=== PATIENT | female | born 1980 | race American Indian/Alaskan Native ===

== ENCOUNTER 2016-06-19 16:03 | Inpatient (IN) | payer MEDICAID, OTHER ==
[2016-06-19] MEDS ORDERED: BRETHINE SUB-Q PRN (16:12)
[2016-06-19] MEDS ORDERED: ePHEDrine SULFATE IV PRN ×2 (16:12→22:19)
[2016-06-19] MEDS ORDERED: STADOL IV PRN (16:12)
[2016-06-19] MEDS ORDERED: NARCAN 0.4 MG/1 ML IV PRN (16:12)
[2016-06-19] MEDS ORDERED: SUBLIMAZE IV PRN (16:12)
[2016-06-19] MEDS ORDERED: MINERAL OIL PO PRN (16:12)
[2016-06-19] MEDS ORDERED: ZOFRAN IV PRN (16:12)
[2016-06-19] MEDS ORDERED: BRETHINE IVP PRN (16:12)
[2016-06-19] MEDS ORDERED: PITOCin/NS 30 UNIT/500ML 500 ML IV SCH (17:00)
[2016-06-19] MEDS ORDERED: PITOCin/NS 20 UNIT/1000ML DRIP 1,000 ML IV SCH (17:00)
[2016-06-19] MEDS ORDERED: POLYCILLIN/NS 2 GM/100 ML 100 ML IV ONE (17:00)
[2016-06-19] MEDS ORDERED: XYLOCAINE 2% INFILTRATI ONE (17:00)
[2016-06-19] MEDS ORDERED: LACTATED RINGERS 1,000 ML IV SCH (17:00)
[2016-06-19] MEDS ORDERED: AMBIEN PO PRN (17:04)
[2016-06-19 18:35] LABS: Hematocrit 29.2 % (30.3-42.9); Mean Corpuscular HGB Conc 31 % (30-34); Mean Corpuscular Volume 79 fl (79-97); Platelet Count 224 K/mm3 (140-440); Red Blood Count 3.72 M/mm3 (3.65-5.03); White Blood Count 12.7 K/mm3 (4.5-11.0)
[2016-06-19 18:39] LABS: Mean Corpuscular Hemoglobin 24 pg (28-32)
[2016-06-19] MEDS ORDERED: BENADRYL ONE (19:24)
[2016-06-19] MEDS ORDERED: BENADRYL IV PRN (19:29)
[2016-06-19] MEDS ORDERED: POLYCILLIN/NS 1 GM/50 ML 50 ML IV SCH (20:16)
[2016-06-19] MEDS ORDERED: ePHEDrine SULFATE ONE (20:59)
[2016-06-19] MEDS ORDERED: NARCAN 2 MG/2 ML IV PRN (22:19)
--- NOTE | 2016-06-19 22:19 | Anesthesia Consultation ---
Anesthesia Consult and Med Hx Date of service: 06/19/16 - Airway Anesthetic Teeth Evaluation: Good ROM Head & Neck: Adequate Mental/Hyoid Distance: Adequate Mallampati Class: Class II Intubation Access Assessment: Probably Good - Pulmonary Exam CTA: Yes - Cardiac Exam Cardiac Exam: RRR - Pre-Operative Health Status ASA Pre-Surgery Classification: ASA2 Proposed Anesthetic Plan: Epidural - Pre-Anesthesia Comment Pre-Anesthesia Comments: at 39 weeks GA in active labor - Pulmonary Hx Asthma: Yes COPD: No Hx Pneumonia: No - Cardiovascular System Hx Hypertension: No Hx Pacemaker: No Hx Internal Defibrillator: No - Central Nervous System Hx Seizures: No CVA: No Hx Psychiatric Problems: No - Endocrine Hx Renal Disease: No Hx End Stage Renal Disease: No Hx Liver Disease: No Hx Hypothyroidism: No Hx Hyperthyroidism: No - Hematic Hx Anemia: No Hx Sickle Cell Disease: No - Other Systems Hx Alcohol Use: No Hx Cancer: No
[2016-06-19] MEDS ORDERED: PEPCID IV ONE (22:44)
[2016-06-19] MEDS ORDERED: BICITRA ONE (22:44)
[2016-06-19] MEDS ORDERED: REGLAN ONE (22:44)
[2016-06-19] MEDS ORDERED: XYLOCAINE MPF 2% ONE (22:58)
[2016-06-19] MEDS ORDERED: ANCEF/STERILE WATER 2 GM/20 ML IV ONE (23:00)
[2016-06-19] MEDS ORDERED: fentaNYL-BUPIV 2 MCG/ML-0.125% 100 ML EPIDURAL SCH (23:00)
[2016-06-19] MEDS ORDERED: NACL 0.9% IR ONE (23:15)
[2016-06-19] MEDS ORDERED: WATER FOR IRRIG STERILE IR ONE (23:15)
[2016-06-19] MEDS ORDERED: VERSED ONE (23:18)
[2016-06-19] MEDS ORDERED: MORPHINE ONE (23:19)
--- NOTE | 2016-06-20 00:31 | History and Physical Report ---
History of Present Illness Date of examination: 06/20/16 Date of admission: 06/19/16 16:03 Chief complaint: leaking fluid History of present illness: Pt is a 35 year old -[place] female EBONY 06/20/16 at 39w6d who presents with rupture of membranes at 1600PM. She reports irregular contractions and denies vaginal bleeding. She has had care at [facility] since 10 wks complicated by hyperemesis gravidarum requiring PICC line, asthma, advanced maternal age and cystitis. She is GBS negative. Past History Past Medical History: asthma Past Surgical History: no surgical history [employer] History: abnormal PAP smear Family/Genetic History: diabetes, heart disease Social history: no significant social history - Obstetrical History Expected Date of Delivery: 06/20/16 Actual Gestation: 40 Week(s) 0 Day(s) : 2 Para: 1 Hx # Term Pregnancies: 1 Number of Pregnancies: 0 Spontaneous Abortions: 0 Induced : 0 Number of Living Children: 1 Medications and Allergies Allergies Allergy/AdvReac Type Severity Reaction Status Date / Time latex Allergy Intermediate Rash Verified 06/19/16 16:30 metoclopramide HCl AdvReac Nausea Verified 05/07/16 18:18 [From [facility]] Home Medications Medication Instructions Recorded Confirmed Last Taken Type Ondansetron [Zofran TAB] 8 mg PO Q8HR PRN #30 tablet 12/15/15 12/18/15 1 Day Ago Rx 8 Clindamycin [Clindamycin CAP] 300 mg PO Q6H #28 capsule 03/13/16 Unknown Rx Ranitidine HCl [Zantac 150 MG TAB] 150 mg PO BID #60 tablet 05/08/16 Unknown Rx oxyCODONE /ACETAMINOPHEN [Percocet 1 tab PO Q6HR PRN #30 tablet 05/08/16 Unknown Rx 5/325] Active Meds: Active Medications Butorphanol Tartrate (Stadol) 2 mg IV Q2H PRN PRN Reason: Pain , Severe (7-10) Last Admin: 06/19/16 19:16 Dose: 2 mg Diphenhydramine HCl (Benadryl) 25 mg IV Q6H PRN PRN Reason: Itching Fentanyl (Sublimaze) 100 mcg IV Q2H PRN PRN Reason: Labor Pain Last Admin: 06/19/16 21:55 Dose: 100 mcg Lactated Ringer's (Lactated Ringers) 1,000 mls @ 125 mls/hr IV DIRECT LYNDSEY Last Admin: 06/19/16 19:17 Dose: 125 mls/hr Oxytocin/Sodium Chloride (Pitocin/Ns 20 Unit/1000ml Drip) 1,000 mls @ 125 mls/ hr IV DIRECT LYNDSEY Oxytocin/Sodium Chloride (Pitocin/Ns 30 Unit/500ml) 500 mls @ 4 mls/hr IV TITR LYNDSEY PRN Reason: Protocol Last Admin: 06/19/16 19:34 Dose: 2 mls/hr Fentanyl/Bupivacaine/Sodium Chlor (Fentanyl-Bupiv 2 Mcg/Ml-0.125%) 100 mls @ 12 mls/hr EPIDURAL TITR LYNDSEY PRN Reason: Protocol Mineral Oil (Mineral Oil) 30 ml PO QHS PRN PRN Reason: Constipation Naloxone HCl (Narcan 0.4 Mg/1 Ml) 0.1 mg IV Q2MIN PRN PRN Reason: Res Rate </= 8 or 02 SAT < 92% Ondansetron HCl (Zofran) 4 mg IV Q8H PRN PRN Reason: Nausea And Vomiting Zolpidem Tartrate (Ambien) 10 mg PO QHS PRN PRN Reason: Insomnia Review of Systems All systems: negative - Vital Signs Vital signs: Vital Signs Pulse Pulse Ox 119 H 99 06/19/16 16:10 06/19/16 16:10 Temp Pulse Resp BP Pulse Ox 99.6 F 99 H 20 129/66 100 06/19/16 16:45 06/19/16 22:51 06/19/16 19:16 06/19/16 22:51 06/19/16 22:51 - Physical Exam Abdomen: Positive: soft (gravid ) Uterus: Positive: enlarged (gravid ) - Obstetrical FHR: category 1 Uterine Contraction Monitor Mode: External Cervical Dilatation: 1 (per RN ) Uterine Contraction Pattern: Irregular Uterine Tone Measurement Phase: Resting Results Result Diagrams: 06/19/16 18:00 Abnormal lab results 06/19/16 Range/Units 18:00 WBC 12.7 H (4.5-11.0) K/mm3 Hgb 9.0 L (10.1-14.3) gm/dl Hct 29.2 L (30.3-42.9) % MCH 24 L (28-32) pg RDW 16.0 H (13.2-15.2) % All other labs normal. Assessment and Plan A: IUP at 39w6d SROM Advanced maternal age Asthma GBS negative P: Admit to labor and delivery. Pitocin augmentation. Routine intrapartum care.
--- NOTE | 2016-06-20 00:32 | Event Note ---
Date: 06/20/16 Late entry. FHT with decel down to the 30s with each contraction, remaining in the 30s for 1-2 minutes each time. FHT recovered to baseline with minimal variability. Cervix 7 cm, edematous. Decision made to proceed with primary delivery for non-reassuring heart tones and intolerance to labor.
[2016-06-20] MEDS ORDERED: DILAUDID IV PRN (00:34)
[2016-06-20] MEDS ORDERED: ZOFRAN IV PRN (00:34)
[2016-06-20] MEDS ORDERED: NARCAN 0.4 MG/1 ML IV PRN ×2 (00:34→01:41)
[2016-06-20] MEDS ORDERED: PHENERGAN PO PRN (00:34)
[2016-06-20] MEDS ORDERED: PHENERGAN PR PRN (00:34)
--- NOTE | 2016-06-20 00:34 | Post Anesthesia Evaluation ---
- Post Anesthesia Evaluation Patient Participated: Yes Airway Patent: Yes Stable Respiratory Function: Yes Nausea/Vomiting: No Temp > 96.8F: Yes Pain Manageable: Yes Adequeate Hydration: Yes Anesthesia Complications: No Block Receding Appropriately: Yes Patient on Ventilator: No
--- NOTE | 2016-06-20 00:34 | Procedure Note ---
OB Delivery Note - Delivery Date of Delivery: 06/20/16 Surgeon: WAYLON BOWMAN Estimated blood loss: other (800 mL) - Section Preop diagnosis: nonreassuring FHR tracing Postop diagnosis: same section procedure: section, primary low transverse Disposition: PACU Complications: none Narrative: Please see operative report. - A at 1 minute: 8 at 5 minutes: 9 Gender: Female (2700g (5lb 15 oz))
--- NOTE | 2016-06-20 00:39 | Operative Report ---
Operative Report Operative Report: Date of procedure:06/19/16 Preoperative diagnosis: 1) IUP at 39w6d 2) SROM 3) Non-reassuring heart tones 4) Intolerance to Labor Postoperative diagnosis: Same Procedure: Primary low transverse section Surgeon: Lexie Austin M.D. Anesthesia: Epidural Findings: 1) Viable female , Apgars 8 and 9, weight 2700g, (5lb 15 oz) 2) Normal-appearing uterus ovaries and tubes Estimated blood loss: 700 mL IV fluids: 800 mL Urine output: 300 mL, blood-tinged after the procedure Drains: Miller to gravity Specimens: None Complications: None. Counts correct x 3. Disposition: Stable to PACU Indication for procedure: 35 year old at 39w6d initially presented to labor and delivery with rupture of membranes. She was started on pitocin and progressed from 1 cm to 7 cm, then FHT dropped to the 30s with each contraction for 1- 2minutes with slow return to baseline. The decision was made to proceed with primary section. Operation in detail: After the risks, benefits, alternatives and complications were explained to the patient she gave informed consent for the procedure. She was subsequently taken to the operating room where epidural anesthesia was noted to be adequate. She was subsequently placed in the dorsal supine position with leftward tilt and prepped and draped in a normal sterile fashion. heart tones were noted to be in the 130s prior to incision. A timeout was performed. A Pfannenstiel skin incision was made with the knife and carried down to the layer of the fascia with the Bovie. The fascia was incised in the midline and the fascial incision was extended bilaterally with the Bovie. The fascia was then digitally. The rectus muscles were then in the midline. The peritoneum was then entered bluntly. The peritoneal incision was then stretched. An Hernandez self-retaining retractor was placed for visualization. The bladder blade was placed. The vesicouterine peritoneum was grasped with smooth pickups and incised with Metzenbaum scissors. Metzenbaum scissors were used to extend the incision bilaterally. The bladder flap was then created digitally and the bladder blade was replaced. A transverse incision was made in the lower uterine segment with a knife and extended bilaterally with the bandage scissors. The head was delivered with some difficulty followed by shoulders and body. was bulb suctioned at delivery. The cord was clamped and cut and the was handed to NICU staff in attendance. Cord blood was collected. The placenta was then delivered manually. The uterus was cleared of all clots and debris. The hysterotomy was then reapproximated with 0 Vicryl in a running locked fashion. A second layer of the same suture was used in imbricating fashion. A figure of eight of 0 Vicryl was used to obtain additional hemostasis. The hysterotomy was inspected and hemostasis was noted. The Hernandez self-retaining retractor was removed. The gutters were irrigated and cleared of all clots and debris. The hysterotomy was again inspected and noted to be hemostatic. Surgicel was then placed over the hysterotomy. The rectus muscles were then reapproximated with 2-0 Vicryl in an interrupted fashion. The fascia was reapproximated with 0 Vicryl in a running fashion. The skin was reapproximated with 4-0 Vicryl in a subcuticular fashion. The incision was then covered with steri strips and a pressure dressing. The procedure was then ended. The patient tolerated the procedure well and was taken to the PACU in stable condition. All instrument, lap, and needle counts were correct 3.
[2016-06-20] MEDS ORDERED: SODIUM CHLORIDE FLUSH SYRINGE 10 ML IV PRN ×2 (01:00→02:00)
[2016-06-20] MEDS ORDERED: TUCKS PAD TP PRN (01:41)
[2016-06-20] MEDS ORDERED: MORPHINE IV PRN (01:41)
[2016-06-20] MEDS ORDERED: MYLICON PO PRN (01:41)
[2016-06-20] MEDS ORDERED: LANSINOH TP PRN (01:41)
[2016-06-20] MEDS ORDERED: D5LR 1,000 ML IV SCH (02:00)
[2016-06-20] MEDS ORDERED: PITOCin/NS 20 UNIT/1000ML DRIP 1,000 ML IV SCH (02:00)
[2016-06-20] MEDS: MORPHINE IV PRN ×2 (02:04→06:19)
[2016-06-20] MEDS: TORADOL IV PRN ×2 (02:05→08:25)
[2016-06-20] MEDS: PRENATAL VITAMIN PO SCH (10:34)
[2016-06-20] MEDS: FEOSOL PO SCH ×2 (10:34→22:15)
--- NOTE | 2016-06-20 11:49 | Progress Note ---
Subjective Date of service: 06/20/16 Interval history: 1st POD after Patient is in the bed, relatively comfortable. Pain is well controlled with pain meds. Ambulated well. No residual neurological deficit. No anesthesia complications Objective - Constitutional Vitals: Vital Signs - 12hr 06/20/16 06/20/16 06/20/16 00:15 00:17 00:21 Temperature 98.4 F Pulse Rate 92 H 88 Pulse Rate [ Left] Respiratory 16 22 Rate Blood Pressure 117/57 Blood Pressure [Left Arm] O2 Sat by Pulse 100 95 Oximetry 06/20/16 06/20/16 06/20/16 00:25 00:30 00:35 Temperature Pulse Rate 76 69 75 Pulse Rate [ Left] Respiratory 16 16 18 Rate Blood Pressure 125/76 127/78 128/80 Blood Pressure [Left Arm] O2 Sat by Pulse 100 100 100 Oximetry 06/20/16 06/20/16 06/20/16 00:40 00:45 00:50 Temperature Pulse Rate 73 72 73 Pulse Rate [ Left] Respiratory 16 14 19 Rate Blood Pressure 134/78 135/81 127/84 Blood Pressure [Left Arm] O2 Sat by Pulse 100 100 100 Oximetry 06/20/16 06/20/16 06/20/16 00:52 00:55 01:00 Temperature Pulse Rate 67 68 Pulse Rate [ Left] Respiratory 18 17 18 Rate Blood Pressure 135/81 126/50 Blood Pressure [Left Arm] O2 Sat by Pulse 100 100 Oximetry 06/20/16 06/20/16 06/20/16 01:05 01:10 01:25 Temperature 98.3 F Pulse Rate 72 69 Pulse Rate [ 68 Left] Respiratory 20 19 20 Rate Blood Pressure 112/63 115/61 Blood Pressure 133/67 [Left Arm] O2 Sat by Pulse 100 100 Oximetry 06/20/16 06/20/16 04:30 08:00 Temperature 98.2 F 97 F L Pulse Rate Pulse Rate [ 83 72 Left] Respiratory 20 18 Rate Blood Pressure Blood Pressure 119/61 110/62 [Left Arm] O2 Sat by Pulse Oximetry - Labs CBC & Chem 7: 06/19/16 18:00 Labs: Abnormal lab results 06/19/16 Range/Units 18:00 WBC 12.7 H (4.5-11.0) K/mm3 Hgb 9.0 L (10.1-14.3) gm/dl Hct 29.2 L (30.3-42.9) % MCH 24 L (28-32) pg RDW 16.0 H (13.2-15.2) %
[2016-06-20 12:18] LABS: Hematocrit 22.5 % (30.3-42.9)
[2016-06-20] MEDS: PERCOCET 5/325 PO PRN ×2 (18:00→23:03)
[2016-06-20] MEDS: MOTRIN PO PRN (18:00)
[2016-06-21] MEDS ORDERED: M-M-R II VACCINE SUB-Q ONE (01:06)
[2016-06-21] MEDS ORDERED: BOOSTRIX IM ONE (06:00)
[2016-06-21] MEDS: PERCOCET 5/325 PO PRN ×3 (08:00→21:46)
--- NOTE | 2016-06-21 09:09 | Progress Note ---
Assessment and Plan O: VSS AF PP H/H: 7.0/22.5 A: Stable POD #1 Anemia P: Iron BID Binder Subjective - Subjective Date of service: 06/21/16 Patient reports: appetite normal, voiding normally, pain well controlled, flatus , ambulating normally : doing well, nursing well Objective - Vital Signs Latest vital signs: Vital Signs Temp Pulse Resp BP 06/21/16 08:35 98.9 F 109 H 18 121/66 06/21/16 00:00 99.4 F 89 18 128/63 06/20/16 23:03 20 06/20/16 16:20 98.9 F 06/20/16 15:53 100.2 F H 98 H 18 114/61 Intake and Output 06/20/16 06/21/16 06/21/16 22:59 06:59 14:59 Intake Total 240 120 Output Total 1100 1400 Balance -860 -1280 Intake: Oral 240 120 Output: Urine 1100 1400 Uretheral (Miller) 700 Void 400 1400 Other: Total, Intake Amount 240 120 Total, Output Amount 400 800 # Voids Indwelling Catheter 1 1 - Exam Breasts: Present: deferred Lungs: Present: Normal air movement Abdomen: Present: normal appearance, soft, tenderness. Absent: distention Vulva: both: normal Uterus: Present: normal, firm, fundal height below umbilicus. Absent: bogginess , tenderness Extremities: Present: normal. Absent: edema Incision: Present: normal, dry, intact, dressed - Labs Labs: Abnormal lab results 06/20/16 Range/Units 11:50 Hgb 7.0 L (10.1-14.3) gm/dl Hct 22.5 L D (30.3-42.9) %
[2016-06-21] MEDS: PRENATAL VITAMIN PO SCH (11:39)
[2016-06-21] MEDS: FEOSOL PO SCH ×2 (11:39→21:43)
[2016-06-21] MEDS: MOTRIN PO PRN ×2 (11:40→18:09)
[2016-06-21] MEDS ORDERED: MILK OF MAGNESIA PO PRN (15:00)
[2016-06-22] MEDS: PERCOCET 5/325 PO PRN ×2 (05:03→10:10)
--- NOTE | 2016-06-22 08:58 | Progress Note ---
Assessment and Plan - Patient Problems (1) Current Visit: No Status: Acute Qualifiers: Weeks of gestation: 13 weeks Qualified Code(s): Z3A.13 - 13 weeks gestation of Plan to address problem: Patient doing well Discharge home Subjective - Subjective Date of service: 06/22/16 Interval history: The patient is without complaints. She is tolerating a regular diet. Her pain is well-controlled. Patient reports: appetite normal, voiding normally, pain well controlled : doing well Objective - Vital Signs Latest vital signs: Vital Signs Temp Pulse Resp BP 06/22/16 05:03 20 06/22/16 00:00 98.4 F 78 18 130/62 06/21/16 21:46 20 06/21/16 16:14 98.5 F 98 H 18 122/65 Intake and Output 06/21/16 06/22/16 06/22/16 22:59 06:59 14:59 Intake Total 240 Balance 240 Intake: Oral 240 Other: Total, Intake Amount 240 # Voids Void 1 1 - Exam Abdomen: Present: normal appearance, soft Uterus: Present: normal Incision: Present: normal, dry, intact
--- NOTE | 2016-06-22 09:00 | Discharge Summary ---
Providers - Providers Date of Admission: 06/19/16 16:03 Date of discharge: 06/22/16 Attending physician: WAYLON BOWMAN 06/20/16 01:41 Consult to [employer] [CONS] Routine Reason For Exam: Primary care physician: WAYLON BOWMAN Hospitalization Reason for admission: rupture of membranes Delivery: Procedure: section, primary low transverse Incision: normal, dry Discharge diagnosis: IUP at term delivered baby: female Hospital course: The patient was admitted with spontaneous rupture membranes. Her intrapartum course was complicated by nonreassuring heart rate tracing. The patient underwent a primary delivery. Postoperative course was uneventful. Condition at discharge: Good Disposition: DISCHARGED TO HOME OR SELFCARE - Discharge Diagnoses (1) Status: Acute Qualifiers: Weeks of gestation: 13 weeks Qualified Code(s): Z3A.13 - 13 weeks gestation of Plan - Discharge Medications Prescriptions: Docusate Sodium [Colace] 100 mg PO BID PRN #60 capsule PRN Reason: Constipation Ibuprofen [Motrin] 800 mg PO Q8HR PRN #60 tablet PRN Reason: Pain Oxycodone HCl/Acetaminophen [Percocet 7.5/325 mg] 1 each PO Q6HR PRN #45 tablet PRN Reason: Pain - Provider Discharge Summary Activity: no sex for 6 weeks, no heavy lifting 4 weeks, no strenuous exercise Diet: routine Instructions: routine Additional instructions: [] Smoking cessation referral if applicable(refer to patient education folder for contact #) [] Refer to [facility]'s [facility] Booklet Call your doctor immediately for: * Fever > 100.5 * Heavy vaginal bleeding ( >1 pad per hour) * Severe persistent headache * Shortness of breath * Reddened, hot, painful area to leg or breast * Drainage or odor from incision. * Keep incision clean and dry at all times and follow doctor's instructions regarding bathing/showering Follow-up in 2 weeks for an incision check
[2016-06-22 09:12] VITALS: BP 127/64
== END 2016-06-22 11:50 | disposition home or self-care (01) | DRG 766 ==
LOC: LD 16:03 → OB 06-20 01:40
PROVIDERS: ADMIT Obstetrics & Gynecology; ATTEND Obstetrics & Gynecology
PROC: 10D00Z1 Extraction of Products of Conception, Low, Open Approach (ICD-10-PCS; principal; 2016-06-20)
DX: O76 Abnormality in fetal heart rate and rhythm complicating labor and delivery (principal); J45.909 Unspecified asthma, uncomplicated; Z3A.39 39 weeks gestation of pregnancy; Z37.0 Single live birth; Z88.8 Allergy status to other drugs, medicaments and biological substances; Z91.040 Latex allergy status; Z83.3 Family history of diabetes mellitus; Z82.49 Family history of ischemic heart disease and other diseases of the circulatory system; O99.52 Diseases of the respiratory system complicating childbirth; O99.02 Anemia complicating childbirth; D64.9 Anemia, unspecified
CPT/HCPCS: 36415; 85014; 85018; 85027; 86850; 86900; 86901; 99211; A6250; G0463; J0290; J0595; J0690; J1170; J1200; J1885; J2250; J2270; J2590; J2765; J3010; J7120; J7121

== ENCOUNTER 2018-07-02 07:06 | Day surgery (SDC) | payer MEDICAID ==
[~2018-07-02 07:06] MED LIST: LACTATED RINGERS 1,000 ML IV SCH; NEURONTIN PO NR; VERSED IV NR
[2018-07-02] MEDS ORDERED: XYLOCAINE MPF 2% ONE (07:13)
[2018-07-02] MEDS ORDERED: ZEMURON IV ONE (07:13)
[2018-07-02] MEDS ORDERED: DIPRIVAN 10 MG/ML IV ONE (07:13)
[2018-07-02] MEDS ORDERED: DILAUDID ONE (07:13)
[2018-07-02] MEDS ORDERED: DECADRON ONE (07:14)
[2018-07-02] MEDS ORDERED: ZOFRAN ONE (07:14)
--- NOTE | 2018-07-02 07:33 | Short Stay Summary ---
Short Stay Documentation Date of service: 07/02/18 Narrative H&P: 37y/o with undesired fertility. Other contraceptive options have been discussed with patient. She elects for permanent sterilization. - History Principal diagnosis: Unwanted fertility Past Medical History: other (asthma) Past Surgical History: Social history: single - Allergies and Medications Current Medications: Allergies latex Allergy (Verified 07/01/18 10:56) Rash metoclopramide HCl [From Reglan] Adverse Reaction (Verified 07/01/18 10:56) Nausea Home Medications Medication Instructions Recorded Confirmed Last Taken Type Albuterol Sulfate [Ventolin Hfa] 2 puff IH Q4H PRN 07/01/18 07/01/18 Unknown History Active Medications Celecoxib (Celebrex) 200 mg PO PREOP NR Stop: 07/02/18 23:59 Gabapentin (Neurontin) 300 mg PO PREOP NR Stop: 07/02/18 23:59 Lactated Ringer's (Lactated Ringers) 1,000 mls @ 100 mls/hr IV DIRECT LYNDSEY Midazolam HCl (Versed) 2 mg IV PREOP NR Stop: 07/02/18 23:59 - Physical exam General appearance: no acute distress Integumentary: no rash HEENT: Atraumatic Lungs: Clear to auscultation Breasts: deferred Heart: Regular rate Gastrointestinal: normal Female Genitourinary: deferred Rectal Exam: deferred - Brief post op/procedure progress note Date of procedure: 07/02/18 Pre-op diagnosis: unwanted fertility Post-op diagnosis: same Procedure: Laparoscopic bilateral tubal ligation with Filshie clips Anesthesia: GETA Surgeon: MOY HDEZ Estimated blood loss: none Pathology: none Condition: stable - Hospital course Hospital course: The patient was admitted the day of surgery and underwent a laparoscopic bilateral tubal ligation with Filshie clips. Please see operative note for details of surgery. Postoperative course was uneventful. - Disposition Condition at discharge: Good Disposition: DC-01 TO HOME OR SELFCARE Short Stay Discharge Plan Activity: other (pelvic rest for 1 week) Diet: regular Additional Instructions: Follow-up is not required Follow-up as needed Prescriptions: Ibuprofen [Motrin] 800 mg PO Q8HR PRN #60 tablet PRN Reason: Pain, Mild (1-3) oxyCODONE /ACETAMINOPHEN [Percocet 5/325] 1 tab PO Q6HR PRN #20 tablet PRN Reason: Pain
[2018-07-02] MEDS ORDERED: MARCAINE 0.5% INFILTRATI ONE ×2 (08:05→10:40)
--- NOTE | 2018-07-02 08:32 | Anesthesia Consultation ---
Anesthesia Consult and Med Hx Date of service: 07/02/18 - Airway Anesthetic Teeth Evaluation: Good ROM Head & Neck: Adequate Mental/Hyoid Distance: Adequate Mallampati Class: Class II Intubation Access Assessment: Probably Good - Pulmonary Exam CTA: Yes - Cardiac Exam Cardiac Exam: RRR - Pre-Operative Health Status ASA Pre-Surgery Classification: ASA2 Proposed Anesthetic Plan: General - Pulmonary Hx Smoking: No Hx Asthma: Yes (no inhaler use in sever years) Hx Respiratory Symptoms: No (no recent cough or flu-like symptoms) - Cardiovascular System Hx Hypertension: No Hx Heart Attack/AMI: No - Central Nervous System Hx Seizures: No CVA: No - Gastrointestinal Hx Gastroesophageal Reflux Disease: No - Endocrine Hx Renal Disease: No Hx Liver Disease: No Hx Insulin Dependent Diabetes: No Hx Non-Insulin Dependent Diabetes: No Hx Thyroid Disease: No - Other Systems Hx Obesity: No - Additional Comments Anesthesia Medical History Comments: No hx anesthetic complications.
--- NOTE | 2018-07-02 08:35 | Anesthesia Day of Surgery ---
Anesthesia Day of Surgery - Day of Surgery Patient Examined: Yes Patient H&P Reviewed: Yes Patient is NPO: Yes
[2018-07-02] MEDS ORDERED: NACL 0.9% IR ONE (10:30)
[2018-07-02] MEDS ORDERED: ROBINUL ONE (10:39)
[2018-07-02] MEDS ORDERED: BLOXIVERZ ONE (10:39)
[2018-07-02] MEDS ORDERED: DILAUDID IV PRN (10:54)
--- NOTE | 2018-07-02 10:55 | Operative Report ---
Operative Report Operative Report: Date of surgery: 07/02/2018 Preoperative diagnosis: Unwanted fertility Postoperative diagnosis: Same as above Procedure: Laparoscopic bilateral tubal ligation with Filshie clips Surgeon: Amelia Smith M.D. Anesthesia: General endotracheal anesthesia Estimated blood loss: Minimal Findings: Normal uterus tubes and ovaries Indication: 37-year-old with unwanted fertility. The patient has elected for permanent sterilization. Procedure: The patient was taken to the operating room and given general endotracheal anesthesia without complication. The patient is prepped and draped in a normal sterile fashion. A bivalve speculum was placed in the patient's vagina and a single-tooth tenaculum was placed on the anterior lip of the cervix .A uterine acorn manipulato rwas placed, and the bivalve speculum was then removed. Attention was then turned to the patient's abdomen where a 5 mm in fraumbilical skin incision was then made. A Veress needle was placed and peritoneal entry was verified water-filled syringe. Insufflation of the peritoneal cavity was performed with CO2 gas. A 5 mm trocar was placed and the laparoscope was then inserted. The patient was then placed in Trendelenburg. A 7 mm suprapubic skin incision was then made. Under direct visualization a 7 mm trocar was then placed. General survey of the patient's abdomen revealed normal uterus tubes and ovaries. The fallopian tube was then followed out to the fimbriated end. A Filshie clip was placed, on the ampullary portion of the tube. An additional Filshie clip was placed on the fallopian tube. This was performed on the contralateral side as well. The 7 mm trocar was then removed. The pneumoperitoneum was then released. The 5 mm trocar laparoscope was then removed. The skin incisions were then closed with 4-0 Monocryl. The incisions were injected with quarter percent Marcaine. Dressings were applied to the incision. The vaginal instruments were then removed atraumatically. Then successfully extubated and taken to the recovery room. All sponge laps and needle counts were correct 2.
[2018-07-02] MEDS ORDERED: PERCOCET 5/325 PO PRN (11:37)
[2018-07-02 13:09] VITALS: BP 126/60
--- NOTE | 2018-07-02 13:32 | Post Anesthesia Evaluation ---
- Post Anesthesia Evaluation Patient Participated: Yes Airway Patent: Yes Stable Respiratory Function: Yes Nausea/Vomiting: No Temp > 96.8F: Yes Pain Manageable: Yes Adequeate Hydration: Yes Anesthesia Complications: No
== END 2018-07-02 13:25 | disposition home or self-care (01) ==
LOC: OR 07:06
PROVIDERS: ATTEND Obstetrics & Gynecology
DX: Z30.2 Encounter for sterilization (principal); J45.909 Unspecified asthma, uncomplicated; Z91.040 Latex allergy status; Z79.899 Other long term (current) drug therapy; Z98.891 History of uterine scar from previous surgery; Z98.890 Other specified postprocedural states; Z83.3 Family history of diabetes mellitus; Z80.8 Family history of malignant neoplasm of other organs or systems; Z88.8 Allergy status to other drugs, medicaments and biological substances; Z82.49 Family history of ischemic heart disease and other diseases of the circulatory system
CPT/HCPCS: 58671; 81025; 88300; J1100; J1170; J2250; J2405; J2704; J2710; J7120; 88302

== ENCOUNTER 2020-06-29 06:16 | Day surgery (SDC) | payer MEDICAID ==
[2020-06-27 12:51] LABS: Hematocrit 38.5 % (30.3-42.9); Hemoglobin 12.6 gm/dl (10.1-14.3); Mean Corpuscular HGB Conc 33 % (30-34); Mean Corpuscular Volume 87 fl (79-97); Platelet Count 210 K/mm3 (140-440); Red Blood Count 4.43 M/mm3 (3.65-5.03); Red Cell Distribution Width 13.7 % (13.2-15.2)
[~2020-06-29 06:16] MED LIST changes: +MIDAZOLAM 2 MG/2 ML INJ IV NR; -NEURONTIN PO NR; -VERSED IV NR
--- NOTE | 2020-06-29 06:32 | Short Stay Summary ---
Short Stay Documentation Date of service: 06/29/20 Narrative H&P: 39y/o with painful heavy menses. Pelvic ultrasound demonstrated small leiomyomas. The patient is also experiencing worsening pain with her menses. She has failed medical management. - History Principal diagnosis: dysmenorrhea and menorrhagia Past Medical History: other (asthma; endometriosis) Past Surgical History: , Other (tubal ligation) Social history: single - Allergies and Medications Current Medications: Allergies latex Allergy (Verified 06/24/20 10:32) Rash metoclopramide HCl [From Reglan] Adverse Reaction (Verified 06/24/20 10:32) Nausea dairy Allergy (Uncoded 06/24/20 10:32) Stomach pain, vomiting Home Medications Medication Instructions Recorded Confirmed Last Taken Type Albuterol Sulfate [Ventolin Hfa] 2 puff IH Q4H PRN 07/01/18 06/24/20 Unknown History Active Medications Lactated Ringer's (Lactated Ringers) 1,000 mls @ 100 mls/hr IV DIRECT LYNDSEY Stop: 06/29/20 23:59 Midazolam HCl (Midazolam 2 Mg/2 Ml Inj) 2 mg IV PREOP NR Stop: 06/29/20 21:00 - Physical exam General appearance: no acute distress Integumentary: no rash HEENT: Atraumatic Lungs: Clear to auscultation Breasts: deferred Heart: Regular rate Gastrointestinal: normal Female Genitourinary: deferred Rectal Exam: deferred Extremities: no ischemia - Brief post op/procedure progress note Date of procedure: 06/29/20 Pre-op diagnosis: Menorrhagia Post-op diagnosis: same Procedure: Hysteroscopy Endometrial ablation via NovaSure Anesthesia: GETA Surgeon: MOY HDEZ Estimated blood loss: none Pathology: none Condition: stable - Hospital course Hospital course: The patient was admitted the day of surgery and underwent a hysteroscopy and endometrial ablation. Please see operative note for details of surgery. Her postoperative course was uneventful. - Disposition Condition at discharge: Good Disposition: DC-01 TO HOME OR SELFCARE - Discharge Diagnoses (1) Menorrhagia Status: Acute Short Stay Discharge Plan Activity: other (Pelvic rest for 1 week) Diet: regular Additional Instructions: Patient may schedule follow-up in [address] Hdez Prescriptions: Ibuprofen [Motrin] 800 mg PO Q8HR PRN #30 tablet PRN Reason: Pain , Severe (7-10) HYDROcodone/APAP 5-325 [[place] 5/325] 1 each PO Q6HR PRN #15 tablet PRN Reason: Pain
--- NOTE | 2020-06-29 06:58 | Anesthesia Consultation ---
Anesthesia Consult and Med Hx Date of service: 06/29/20 - Airway Anesthetic Teeth Evaluation: Good ROM Head & Neck: Adequate Mental/Hyoid Distance: Adequate Mallampati Class: Class II Intubation Access Assessment: Good - Pulmonary Exam CTA: Yes - Cardiac Exam Cardiac Exam: RRR - Pre-Operative Health Status ASA Pre-Surgery Classification: ASA2 Proposed Anesthetic Plan: General - Pulmonary Hx Smoking: No Hx Asthma: Yes (Seasonal, last used inhaler 3 mos ago) Hx Respiratory Symptoms: No (no recent cough or flu-like symptoms) COPD: No Hx Pneumonia: No - Cardiovascular System Hx Hypertension: No Hx Heart Attack/AMI: No Hx Pacemaker: No Hx Internal Defibrillator: No - Central Nervous System Hx Seizures: No CVA: No Hx Psychiatric Problems: No - Gastrointestinal Hx Gastroesophageal Reflux Disease: No - Endocrine Hx Renal Disease: No Hx End Stage Renal Disease: No Hx Liver Disease: No Hx Insulin Dependent Diabetes: No Hx Non-Insulin Dependent Diabetes: No Hx Thyroid Disease: No Hx Hypothyroidism: No Hx Hyperthyroidism: No - Hematic Hx Anemia: No Hx Sickle Cell Disease: No - Other Systems Hx Alcohol Use: No Hx Cancer: No Hx Obesity: No
--- NOTE | 2020-06-29 06:59 | Anesthesia Day of Surgery ---
Anesthesia Day of Surgery - Day of Surgery Patient Examined: Yes Patient H&P Reviewed: Yes Patient is NPO: Yes
[2020-06-29] MEDS ORDERED: ONDANSETRON 4 MG/2 ML INJ IV PRN (07:17)
[2020-06-29] MEDS ORDERED: oxyCODONE /ACETAMINOPHEN 5-325MG TAB PO PRN (07:17)
[2020-06-29] MEDS ORDERED: fentaNYL 100 MCG/2 ML INJ IV PRN (07:17)
[2020-06-29] MEDS ORDERED: propofoL 200 MG/20 ML VIAL IV ONE (07:32)
[2020-06-29] MEDS ORDERED: SODIUM CHLORIDE 0.9% IRRIG SOLN 3000 ML IR ONE (07:52)
[2020-06-29] MEDS ORDERED: ONDANSETRON 4 MG/2 ML INJ ONE (08:00)
[2020-06-29] MEDS ORDERED: LIDOCAINE MPF (2%) 20 MG/1 ML VIAL 5 ML ONE (08:00)
[2020-06-29] MEDS ORDERED: KETOROLAC 30 MG/1 ML INJ ONE (08:00)
[2020-06-29] MEDS ORDERED: dexAMETHasone 20 MG/5 ML VIAL ONE (08:00)
--- NOTE | 2020-06-29 08:14 | Operative Report ---
Operative Report Operative Report: Date of procedure: June 29, 2020 Pre-operative diagnosis: Menorrhagia; dysmenorrhea Post-operative diagnosis: Same as above Procedure name(s): Hysteroscopy; endometrial ablation via NovaSure Surgeon: Amelia Gonzales M.D. Molecular Technologist: None Anesthesia: General tracheal anesthesia Findings normal endometrial cavity Indication: 39-year-old -0-0-2 with a history of worsening dysmenorrhea and menorrhagia. Procedure The patient was taken to the operating room and given general tracheal anesthesia without complication. The patient was prepped and draped in a normal sterile fashion. A bivalve speculum was placed in the patient's vagina single- tooth tenaculums placed on the anterior lip of the cervix. The cervical os was dilated with graduated dilators. A uterine sound was inserted. The hysteroscope was then placed. Insufflation of the uterine cavity was performed with normal saline. Gen. survey of the uterine cavity revealed normal uterine cavity no evidence of intracavitary lesions. The hysteroscope was then removed. The NovaSure device was then inserted. The endometrial length was 5.0 cm and the uterine width was 3.1 cm. The device was engaged and it passed the surveillance of the uterine cavity. The NovaSure device was then deployed with a energy of 85 W that lasted for 1 minute and 15 seconds. The NovaSure device was then removed. The hysteroscope was again reinserted. There was evidence of charring of the endometrial surface. The remainder of the vaginal instruments were then removed atraumatically. The patient was then successfully extubated taken to the recovery room. All sponge laps and needle counts were correct 2.
[2020-06-29 09:36] VITALS: BP 115/75
== END 2020-06-29 09:50 | disposition home or self-care (01) ==
LOC: OR 06:16
PROVIDERS: ATTEND Obstetrics & Gynecology
DX: N92.0 Excessive and frequent menstruation with regular cycle (principal); N94.6 Dysmenorrhea, unspecified; J45.909 Unspecified asthma, uncomplicated; Z86.19 Personal history of other infectious and parasitic diseases; Z91.040 Latex allergy status; Z88.8 Allergy status to other drugs, medicaments and biological substances; Z79.899 Other long term (current) drug therapy; Z98.51 Tubal ligation status; Z98.891 History of uterine scar from previous surgery; Z98.890 Other specified postprocedural states; Z83.3 Family history of diabetes mellitus; Z80.8 Family history of malignant neoplasm of other organs or systems; Z82.49 Family history of ischemic heart disease and other diseases of the circulatory system
CPT/HCPCS: 36415; 58563; 84703; 85027; A4217; J1100; J1885; J2250; J2405; J2704; J3010; J7120; U0003